=== PATIENT | female | born 1975 ===

== ENCOUNTER 2023-01-25 18:26 | Emergency (ER) | payer OTHER ==
[~2023-01-25] VITALS: Ht 162.6 cm; Wt 77.3 kg
[2023-01-25] MEDS ORDERED: IBUP-1554 PO (21:41)
[2023-01-25 22:00] VITALS: BP 123/69; PULSE 63; RESP 16; TEMP 98.3
== END 2023-01-25 22:00 | disposition home or self-care (01) ==
LOC: EMS 18:30
DX: S20.211A Contusion of right front wall of thorax, initial encounter (principal); W01.0XXA Fall on same level from slipping, tripping and stumbling without subsequent striking against object, initial encounter; Y93.01 Activity, walking, marching and hiking; Y92.89 Other specified places as the place of occurrence of the external cause; Y99.8 Other external cause status
CPT/HCPCS: 71101; 99283